=== PATIENT | female | born 1965 | race Caucasian/White ===

== ENCOUNTER 2016-08-28 01:14 | Emergency (ER) | payer OTHER ==
[2016-08-28 01:22] VITALS: BP 149/99; O2SAT 99
[2016-08-28] MEDS ORDERED: Hydromorphone 1 mg/ml Ampule IM ONE (01:33)
[2016-08-28] MEDS ORDERED: Phenergan 25 MG INJ IM ONE (01:33)
[2016-08-28] MEDS ORDERED: Hydromorphone 1 mg/ml Ampule ONE (01:36)
[2016-08-28] MEDS ORDERED: Phenergan 25 MG INJ ONE (01:36)
--- NOTE | 2016-08-28 01:38 | ERPHSYRPT ---
- History of Present Illness Time Seen by Provider: 08/28/16 01:20 Source: patient, other (N.N.) Exam Limitations: no limitations Patient Subjective Stated Complaint: STATES THAT SHE AND HER WERE HORSEPLAYING AROUND AND SHE HURT HER RIGHT LOWER RIBS - SHE STATES THAT THE PAIN IS GETTING WORSE AND SHE CANT TAKE A DEEP BREATH NOW Triage Nursing Assessment: AMBULATORY TO TREATMENT AREA - STEADY GAIT - MOVES ALL EXTREMITIES WITH EQUAL STRENGTH. ALERT/ORIENTED - GRIMMACING AFFECT. SKIN FLUSHED/DRY - NO RASH - BRUISING UNDER THE RIGHT BREAST NOTED. 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 PT DENIES SHORTNESS OF AIR, ABDOMINAL PAIN, VOMITING. Allergies/Adverse Reactions: No Known Drug Allergies Allergy (Unverified 08/28/16 01:16) Hx Tetanus, Diphtheria Vaccination/Date Given: No Hx Influenza Vaccination/Date Given: No Hx Pneumococcal Vaccination/Date Given: No Immunizations Up to Date: Yes - Review of Systems Respiratory: No Dyspnea Cardiac: Other (RIGHT LOWER RIB PAIN) Abdominal/Gastrointestinal: No Abdominal Pain, No Vomiting Neurological: No Headache Endocrine: No Excessive Sweating All Other Systems: Reviewed and Negative - Past Medical History Pertinent Past Medical History: Yes Cardiac History: High Cholesterol Endocrine Medical History: Diabetes Type II - Past Surgical History Past Surgical History: Yes Other Surgical History: CATARACTS - Social History Smoking Status: Current every day smoker Exposure to second hand smoke: No Drug Use: marijuana Patient Lives Alone: No - Female History Hx Last Menstrual Period: N/A - Nursing Vital Signs Nursing Vital Signs: Initial Vital Signs Pulse Rate 110 Respiratory Rate 18 Blood Pressure [Left Arm] 149/99 Pain Intensity 10 - Physical Exam General Appearance: mild distress, alert Eye Exam: PERRL/EOMI Ears, Nose, Throat Exam: pharynx normal Neck Exam: normal inspection Respiratory Exam: chest tenderness (MILD RIGHT LOWER ANTERIOR RIB TENDERNESS WITHOUT CREPITUS) Cardiovascular Exam: normal heart sounds Gastrointestinal/Abdomen Exam: soft, normal bowel sounds Back Exam: normal inspection Extremity Exam: pedal edema (+1 PEDAL EDEMA BILATERALLY) Neurologic Exam: alert, cooperative Skin Exam: warm, dry SpO2 Interpretation: normal SpO2: 99 Oxygen Delivery: Room Air - Course Nursing assessment & vital signs reviewed: Yes - Radiology Exams Right Ribs X-ray Interpretation: Teleradiologist Report (NORMAL RIGHT RIB X-RAYS.) Ordered Tests: Active Orders 24 hr Category Date Time Status RIBS UNILATERAL Stat Exams 08/28/16 01:32 Taken Medication Summary Discontinued Medications Generic Name Dose Route Start Last Admin Trade Name Freq PRN Reason Stop Dose Admin Hydromorphone HCl 1 mg 08/28/16 01:33 08/28/16 01:42 Hydromorphone 1 Mg/Ml Ampule IM 08/28/16 01:34 1 mg STAT ONE Administration Hydromorphone HCl Confirm 08/28/16 01:36 Hydromorphone 1 Mg/Ml Ampule Administered 08/28/16 01:37 Dose 1 mg .ROUTE .STK-MED ONE Promethazine HCl 25 mg 08/28/16 01:33 08/28/16 01:41 Phenergan 25 Mg Inj IM 08/28/16 01:34 25 mg STAT ONE Administration Promethazine HCl Confirm 08/28/16 01:36 Phenergan 25 Mg Inj Administered 08/28/16 01:37 Dose 25 mg .ROUTE .STK-MED ONE - Departure Time of Disposition: 02:24 Departure Disposition: Home Clinical Impression: RIGHT RIB STRAIN Condition: Fair Critical Care Time: No Instructions: Rib Contusion Additional Instructions: FOLLOW UP WITH PRIVATE DOCTOR TOMORROW. DO NOT LIFT, BEND OR TWIST TORSO. Prescriptions: Naproxen [Naprosyn] 500 mg PO [id number] PRN #20 tablet PRN Reason: Pain Cyclobenzaprine HCl [Flexeril] 10 mg PO TID #0 tablet
[2016-08-28 02:35] VITALS: PULSE 80
--- NOTE | 2016-08-28 08:17 | XRAY ---
Indication: Anterior chest wall pain. Comparison: None 2 views of the right ribs obtained. No bony, articular, or soft tissue abnormalities. Comment: Preliminary interpretation was made by [facility]. No discrepancy.
== END 2016-08-28 02:35 | disposition home or self-care (01) ==
LOC: ED 01:14
DX: S23.41XA Sprain of ribs, initial encounter (principal); Y93.83 Activity, rough housing and horseplay; E78.00 Pure hypercholesterolemia, unspecified; E11.9 Type 2 diabetes mellitus without complications
CPT/HCPCS: 71100; 96372; 99284; J1170; J2550

== ENCOUNTER 2018-06-10 12:38 | Emergency (ER) | payer OTHER ==
--- NOTE | 2018-06-10 13:09 | ERPHSYRPT ---
- History of Present Illness Time Seen by Provider: 06/10/18 13:01 Source: patient Exam Limitations: no limitations Patient Subjective Stated Complaint: pt here for numbness and pain to right upper arm for over a month now, after working outside, was put on maloxicam by with no relief Triage Nursing Assessment: pt walked in,alert, resp easy, skin w/d/p. no swelling to arm, tender to touch, strong radial pulse Physician History: The patient is a right-handed 52-year-old female who complains of right shoulder and upper arm pain for about one month. It all began a few minutes after she tossed a garbage sack full of yard waste off to the right hand side of her using her right arm. Ever since that event, she has been experiencing pain when she moves her arm out to her side or up towards her head. It is difficult for her to sleep with her right arm curled underneath her head because of the pain. She denies numbness or tingling. She saw her local family doctor and was given meloxicam without relief. Her past medical history is significant for DM and high cholesterol. Occurred: other (1 month) Method of Injury: twisted Quality: constant Severity of Pain-Max: moderate Severity of Pain-Current: moderate Extremities Pain Location: shoulder: right Modifying Factors: Improves With: nothing Associated Symptoms: none Allergies/Adverse Reactions: No Known Drug Allergies Allergy (Verified 06/10/18 12:51) Home Medications: Insulin Glargine [Lantus Insulin] 33 unit SQ DAILY 06/10/18 [History] Meloxicam 7.5 mg DAILY 06/10/18 [History] Rosuvastatin Calcium [Crestor] 10 mg DAILY 06/10/18 [History] Hx Tetanus, Diphtheria Vaccination/Date Given: No Hx Influenza Vaccination/Date Given: No Hx Pneumococcal Vaccination/Date Given: No Immunizations Up to Date: Yes - Review of Systems Constitutional: No Fever, No Chills Eyes: No Symptoms Ears, Nose, & Throat: No Symptoms Respiratory: No Cough, No Dyspnea Cardiac: No Chest Pain, No Edema, No Syncope Abdominal/Gastrointestinal: No Abdominal Pain, No Nausea, No Vomiting, No Diarrhea Genitourinary Symptoms: No Dysuria Musculoskeletal: Joint Pain Skin: No Rash Neurological: No Dizziness, No Focal Weakness, No Sensory Changes Psychological: No Symptoms Endocrine: No Symptoms Hematologic/Lymphatic: No Symptoms Immunological/Allergic: No Symptoms All Other Systems: Reviewed and Negative - Past Medical History Pertinent Past Medical History: Yes Cardiac History: High Cholesterol Endocrine Medical History: Diabetes Type II - Past Surgical History Past Surgical History: Yes Gastrointestinal: Cholecystectomy Female Surgical History: Tubal Ligation Other Surgical History: CATARACTS - Social History Smoking Status: Current every day smoker Exposure to second hand smoke: Yes Drug Use: none Patient Lives Alone: No - Female History Hx Last Menstrual Period: post Hx Now: No - Nursing Vital Signs Nursing Vital Signs: Pain Scale Pain Intensity 8 - Physical Exam General Appearance: alert Eyes, Ears, Nose, Throat Exam: moist mucous membranes Neck Exam: non-tender, supple Cardiovascular/Respiratory Exam: chest non-tender, normal breath sounds, regular rate/rhythm, no respiratory distress Abdominal Exam: non-tender, No guarding Back Exam: normal inspection, No vertebral tenderness Shoulder Exam: limited ROM (Examination of the right shoulder and right upper arm: The patient has pain on extension of her right arm out to her side and up near her head. She has pain on resisted flexion and extension as well. The pain is more in her shoulder and proximal upper arm.) Elbow/Forearm Exam: normal inspection Wrist Exam: normal inspection Hand Exam: normal inspection Neuro/Tendon Exam: normal sensation, normal motor functions Mental Status Exam: alert, oriented x 3, cooperative Skin Exam: normal color, warm, dry SpO2 Interpretation: normal Oxygen Delivery: Room Air - Radiology Exams Right Shoulder X-ray Interpretation: Interpreted by me, Negative, No Fracture, No Subluxation Ordered Tests: Active Orders 24 hr Category Date Time Status SHOULDER Stat Exams 06/10/18 13:15 Ordered Medication Summary Discontinued Medications Generic Name Dose Route Start Last Admin Trade Name [place] PRN Reason Stop Dose Admin Ketorolac Tromethamine 60 mg 06/10/18 13:15 06/10/18 13:40 Toradol 30 Mg Injection IM 06/10/18 13:16 60 mg STAT ONE Administration Ketorolac Tromethamine Confirm 06/10/18 13:26 Toradol 30 Mg Injection Administered 06/10/18 13:27 Dose 60 mg .ROUTE .STK-MED ONE - Progress Progress: improved Counseled pt/family regarding: diagnosis, need for follow-up, rad results - Departure Time of Disposition: 13:52 Departure Disposition: Home Clinical Impression: Right shoulder injury Condition: Stable Critical Care Time: No Referrals: SANDRO PEARSON [Primary Care Provider] - Additional Instructions: You have a right shoulder injury that may be due to a rotator cuff injury. The x-ray of your right shoulder did not show any bone problems. You were given Toradol 60 mg by IM in the ER. You may continue with the meloxicam as previously directed. Take Tylenol No. 3 one tablet every 4-6 hours as needed. Follow-up with your primary medical doctor tomorrow. You may possibly need an MRI of your shoulder and evaluation by orthopedic surgeon. Prescriptions: Codeine Phosphate/APAP #3 [Tylenol #3 Tablet] 1 tab PO Q4-6HPRN PRN #10 tablet MDD 6 PRN Reason: Moderate Pain
[2018-06-10] MEDS ORDERED: TORAdol 30 mg Injection IM ONE (13:15)
[2018-06-10] MEDS ORDERED: TORAdol 30 mg Injection ONE (13:26)
[2018-06-10 14:12] VITALS: BP 145/84; PULSE 78; O2SAT 98
--- NOTE | 2018-06-10 19:39 | XRAY ---
Indication: Pain 1 month. No known injury. Comparison: None 3 views of the right shoulder demonstrates mild AC degenerative arthropathy. No other bony, articular, or soft tissue abnormalities.
== END 2018-06-10 14:20 | disposition home or self-care (01) ==
LOC: ED 12:38
DX: S49.91XA Unspecified injury of right shoulder and upper arm, initial encounter (principal); E78.00 Pure hypercholesterolemia, unspecified; E11.9 Type 2 diabetes mellitus without complications; M25.511 Pain in right shoulder; Z79.899 Other long term (current) drug therapy; Z79.4 Long term (current) use of insulin
CPT/HCPCS: 73030; 96372; 99284; J1885